=== PATIENT | male | born 1960 | race Caucasian/White ===

== ENCOUNTER 2018-12-11 10:57 | Outpatient (RCR) | payer MEDICARE ==
[2018-10-03 12:05] LABS: INR 1.3 (0.8-1.4); PROTHROMBIN TIME PATIENT 16.5 SEC (12.2-14.7)
[2018-12-11 11:30] LABS: INR 1.6 (0.8-1.4); PROTHROMBIN TIME PATIENT 19.6 SEC (12.2-14.7)
== END 2019-01-01 | disposition home or self-care (01) ==
LOC: LAB FS 10:57
PROVIDERS: ATTEND Pediatrics
DX: I48.0 Paroxysmal atrial fibrillation (principal)
CPT/HCPCS: 36415; 85610

== ENCOUNTER 2019-02-01 18:52 | Emergency (ER) | payer MEDICARE ==
[~2019-02-01] VITALS: Ht 188 cm; Wt 90.7 kg
--- OUTSIDE RECORDS SUMMARY | 2019-02-01 19:09 | XMS REPORT | Continuity of Care Document ---
Author Organization Unknown Address Unknown Allergies There is no data. Medications There is no data. Problems Date Dx Coded Attending Type Code Diagnosis Diagnosed By 10/18/2018 MAUREEN SANCHEZ MD Ot I48.0 PAROXYSMAL ATRIAL FIBRILLATION 01/01/2019 MAUREEN SANCHEZ MD Ot I48.0 PAROXYSMAL ATRIAL FIBRILLATION 01/04/2019 MAUREEN SANCHEZ MD, Ot I48.0 PAROXYSMAL ATRIAL FIBRILLATION Procedures There is no data. Results Test Result Range PT panel in platelet poor plasma by coagulation assay - 10/03/18 10:50 Prothrombin time (PT) in platelet poor plasma by coagulation assay 16.5 s 12.2-14.7 INR in platelet poor plasma or blood by coagulation assay 1.3 0.8-1.4 PT panel in platelet poor plasma by coagulation assay - 12/11/18 11:03 Prothrombin time (PT) in platelet poor plasma by coagulation assay 19.6 s 12.2-14.7 INR in platelet poor plasma or blood by coagulation assay 1.6 0.8-1.4 Encounters ACCT No. Visit Date/Time Discharge Status Pt. Type Provider Facility Loc./Unit Complaint [id number] 01/02/2019 00:12:00 01/02/2019 23:59:59 CLS Preadmit MAUREEN SANCHEZ MD [facility] FS 427.31 [id number] 12/11/2018 10:57:00 01/01/2019 00:01:00 DIS Outpatient MAUREEN SANCHEZ MD [facility] FS 427.31
[2019-02-01] MEDS ORDERED: LIDOCAINE/EPI 2% 1:100,00 (XYLOCAINE) 20 ML VIAL INJ STA (19:10)
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
[2019-02-01 19:29] LABS: HEMOGLOBIN 14.2 G/DL (13.3-17.7); MEAN PLATELET VOLUME 10.3 FL (7.4-10.4); RED CELL DISTRIBUTION WIDTH 14.6 % (10.0-14.5); WHITE BLOOD COUNT 6.6 10^3/uL (4.3-11.0)
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
[2019-02-01 19:43] LABS: BUN/CREATININE RATIO 9; CARBON DIOXIDE 24 MMOL/L (21-32); CHLORIDE 94 MMOL/L (98-107); CREATININE SERUM 1.21 MG/DL (0.60-1.30); GFR ESTIMATED > 60; GLUCOSE 111 MG/DL (70-105); POTASSIUM 4.2 MMOL/L (3.6-5.0); SODIUM 135 MMOL/L (135-145)
[2019-02-01 19:44] LABS: ALANINE AMINOTRANSFERASE 22 U/L (0-55); ALBUMIN 4.6 GM/DL (3.2-4.5); ALKALINE PHOSPHATASE 49 U/L (40-136); BILIRUBIN,TOTAL 0.3 MG/DL (0.1-1.0); TOTAL PROTEIN 7.6 GM/DL (6.4-8.2)
[2019-02-01 19:45] LABS: INR 1.1 (0.8-1.4); PROTHROMBIN TIME PATIENT 14.3 SEC (12.2-14.7)
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
[2019-02-01] MEDS ORDERED: TETANUS,DIPTH,PERTUSS P/F (BOOSTRIX) 0.5 ML VIAL IM ONE (21:45)
[2019-02-01 22:02] VITALS: BP 121/77
== END 2019-02-01 22:02 | disposition home or self-care (01) ==
LOC: EDUNIT# 18:52 → ER FS 18:54
DX: S01.112A Laceration without foreign body of left eyelid and periocular area, initial encounter (principal); H11.32 Conjunctival hemorrhage, left eye; R40.2142 Coma scale, eyes open, spontaneous, at arrival to emergency department; R40.2252 Coma scale, best verbal response, oriented, at arrival to emergency department; R40.2362 Coma scale, best motor response, obeys commands, at arrival to emergency department; Z86.73 Personal history of transient ischemic attack (TIA), and cerebral infarction without residual deficits; Y04.0XXA Assault by unarmed brawl or fight, initial encounter
CPT/HCPCS: 12013; 36415; 70450; 70486; 71045; 80053; 80320; 85027; 85610; 85730; 90471; 90715

== ENCOUNTER 2019-02-08 10:58 | Emergency (ER) | payer MEDICARE ==
[~2019-02-08] VITALS: Ht 188 cm; Wt 90.7 kg
[2019-02-08 11:09] VITALS: BP 121/85
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
== END 2019-02-08 11:14 | disposition home or self-care (01) ==
LOC: ER FS 10:58
DX: S01.81XD Laceration without foreign body of other part of head, subsequent encounter (principal); Y04.0XXD Assault by unarmed brawl or fight, subsequent encounter

== ENCOUNTER → 2019-02-26 | Outpatient (CLI) | payer MEDICARE ==
[2019-02-26 13:13] LABS: PROTHROMBIN TIME PATIENT 18.1 SEC (12.2-14.7)
[2019-02-26 13:14] LABS: INR 1.4 (0.8-1.4)
== END ==
LOC: LAB FS 12:12
PROVIDERS: ATTEND Pediatrics
DX: I48.0 Paroxysmal atrial fibrillation (principal)
CPT/HCPCS: 36415; 85610